=== PATIENT | male | born 1970 | race Caucasian/White ===

== ENCOUNTER 2018-11-24 23:50 | Emergency (ER) | payer MEDICAID ==
[2018-11-25] MEDS: Lidocaine/EPINEPHrine/Tetracaine Soln 5 ML Each TOP ONE ×2 (00:10→00:14)
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
== END 2018-11-25 00:55 | disposition home or self-care (01) ==
LOC: FB.ED 23:50
DX: S01.01XA Laceration without foreign body of scalp, initial encounter (principal); Y04.0XXA Assault by unarmed brawl or fight, initial encounter; Y92.838 Other recreation area as the place of occurrence of the external cause
CPT/HCPCS: 12002; 99282; 99283; A9270; 12001

== ENCOUNTER 2019-04-09 23:07 | Emergency (ER) | payer OTHER ==
[2019-04-09] MEDS ORDERED: Acetaminophen/HYDROcodone 325-5 MG Tab PO ONE (23:08)
[2019-04-09] MEDS ORDERED: Amoxicillin/Clavulanate K 500-125 MG Tab PO ONE (23:40)
[2019-04-09] MEDS ORDERED: Amoxicillin 500 MG Cap PO ONE (23:40)
--- NOTE | 2019-04-09 23:46 | EDM.PDOC ---
ED HPI GENERAL MEDICAL PROBLEM - General Stated Complaint: TOOTHACHE AND SWELLING Time Seen by Provider: 04/09/19 23:28 Source of Information: Reports: Patient History Limitations: Reports: No Limitations - History of Present Illness INITIAL COMMENTS - FREE TEXT/NARRATIVE: 48-year-old male with history of left upper dental pain off and on for the past 4 months. Today the pain was much worse and he noticed swelling over the left side of his face which has gotten worse through the day. The pain is a throbbing and aching pain with some sharp spikes. He rates the pain as an 8/10. He has had no fevers. He's had no nausea or vomiting. He swallowing normally. No difficulty breathing. The left upper tooth (molar) is sensitive to touch and to hot and cold. There are no other associated signs or symptoms. There are no other modifying factors. Onset: Other (Pain off and on for the past 4 months but increased pain and swelling began today) Duration: Getting Worse Location: Reports: Face (Left upper dental pain with facial swelling) Quality: Reports: Ache, Sharp, Throbbing Severity: Moderate Improves with: Reports: None Worsens with: Reports: Other (As above) Context: Reports: Other (Not applicable) Associated Symptoms: Reports: No Other Symptoms Treatments GLOBAL CTO: Reports: Other (see below) (Nothing) - Related Data Allergies Allergy/AdvReac Type Severity Reaction Status Date / Time No Known Allergies Allergy Verified 11/25/18 00:12 Home Meds: Home Meds Amoxicillin/Clavulanate K [Augmentin 875-125 MG] 1 tab PO BID 10 Days #20 tablet 04/09/19 [Rx] Past Medical History - Past Health History Medical/Surgical History: Denies Medical/Surgical History - Past Surgical History Other Surgical History Comment: No surgeries. 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.) ED ROS ENT - Review of Systems Review Of Systems: See Below Constitutional: Reports: No Symptoms HEENT: Reports: Dental Pain (Left upper dental pain), Other (Left facial swelling) Respiratory: Reports: No Symptoms Cardiovascular: Reports: No Symptoms Endocrine: Reports: No Symptoms GI/Abdominal: Reports: No Symptoms : Reports: No Symptoms Musculoskeletal: Reports: No Symptoms Skin: Reports: No Symptoms Neurological: Reports: No Symptoms Hematologic/Lymphatic: Reports: No Symptoms Immunologic: Reports: No Symptoms ED EXAM, ENT - Physical Exam Exam: See Below Exam Limited By: No Limitations General Appearance: Alert, WD/WN, Moderate Distress (In pain) Eye Exam: Bilateral Eye: EOMI, Normal Inspection, PERRL Ears: Normal External Exam, Hearing Grossly Normal Nose: Normal Inspection, Normal Mucousa Mouth/Throat: Dental Pain, Dental Tenderness, Other (Left upper gingival erythema; no pointing abscess; no sublingual edema; left facial swelling and tenderness with palpation with no fluctuant area) Head: Atraumatic Neck: Normal Inspection, Supple, Non-Tender, Full Range of Motion Respiratory/Chest: No Respiratory Distress, Lungs Clear, Normal Breath Sounds, No Accessory Muscle Use, Chest Non-Tender Cardiovascular: Normal Peripheral Pulses, Regular Rate, Rhythm, No JVD GI/Abdominal: Normal Bowel Sounds, Soft, Non-Tender, No Mass Back: Normal Inspection Extremities: Normal Inspection, Normal Range of Motion, Non-Tender, No Pedal Edema, Normal Capillary Refill Neurological: Alert, Oriented, CN II-XII Intact, Normal Cognition, No Motor/ Sensory Deficits Skin: Warm, Dry, Intact, Normal Color, No Rash Lymphatic: No Adenopathy Course - Orders/Labs/Meds Meds: Medications Discontinued Medications Generic Name Dose Route Start Last Admin Trade Name Freq PRN Reason Stop Dose Admin Amoxicillin 500 mg 04/09/19 23:40 Amoxil PO 04/09/19 23:41 ONETIME ONE Amoxicillin/Clavulanate Potassium 1 tab 04/09/19 23:40 Augmentin 500 Mg\125 Mg PO 04/09/19 23:41 ONETIME ONE - Re-Assessments/Exams Free Text/Narrative Re-Assessment/Exam: 04/09/19 23:50: Patient with left upper dental pain with left facial swelling and signs and symptoms of a dental abscess. The patient was given amoxicillin 500 mg and Augmentin 500 mg by mouth in the emergency department. He was also given a take-home pack of hydrocodone 5/325. He was told that he should not drink alcohol with this medication and I explained the risk of doing such. He will be placed on Augmentin 875 mg twice daily. He is to see a dentist as soon as he can arrange. His blood pressure was also elevated in the emergency department and I urged him to arrange for a primary provider. I actually referred him to one of the nurse practitioners. Departure - Departure Time of Disposition: 23:55 Disposition: Home, Self-Care 01 Condition: Good Clinical Impression: Pain, dental, Dental abscess, Facial cellulitis, Elevated blood pressure reading - Discharge Information *PRESCRIPTION DRUG MONITORING PROGRAM REVIEWED*: Yes (Patient was checked through the [facility] aware through all of the states adjacent to [place] and no one with patient's name and date of was found.) *COPY OF PRESCRIPTION DRUG MONITORING REPORT IN PATIENT JUAN DANIEL: No Prescriptions: Amoxicillin/Clavulanate K [Augmentin 875-125 MG] 1 tab PO BID 10 Days #20 tablet Instructions: Preventing Hypertension, Hypertension, How to Take Your Blood Pressure, Dental Abscess Referrals: PCP,None [Primary Care Provider] - Additional Instructions: You have a dental abscess associated with one of your left upper teeth and also with a facial cellulitis (or infection) associated with this dental infection. You should call a dentist to arrange to see them as soon as possible next week as this doctor will be the only person that we'll be able to ultimately take care of his problem. I have given you a take home pack of hydrocodone 5/325 that you may take for moderate to severe pain. You may also take ibuprofen 800 mg by mouth every 8 hours as needed for pain. Other medication as prescribed ( Augmentin 875 mg). You should take probiotics or eat yogurt daily while you are on these antibiotics. Back to the emergency department for trouble breathing, trouble swallowing, unrelenting vomiting, worsening signs of infection or any other concerning sign or symptom.
== END 2019-04-10 00:15 | disposition home or self-care (01) ==
LOC: FB.ED 23:07
DX: K04.7 Periapical abscess without sinus (principal); L03.211 Cellulitis of face; R03.0 Elevated blood-pressure reading, without diagnosis of hypertension; F17.210 Nicotine dependence, cigarettes, uncomplicated
CPT/HCPCS: 99282; A9270-GY

== ENCOUNTER 2019-11-30 19:00 | Emergency (ER) | payer BC, OTHER ==
[2019-11-30] MEDS ORDERED: LORazepam 0.5 MG Tab PO ONE ×2 (19:40)
[2019-11-30] MEDS ORDERED: LORazepam 0.5 MG Tab ONE (19:40)
--- NOTE | 2019-12-01 00:21 | ER ---
DATE SEEN: 11/30/2019 CHIEF COMPLAINT: Stress. HISTORY OF PRESENT ILLNESS: This is a 49-year-old male who presents feeling under a lot of stress. He lives alone, and over the last few days, he states that he has been unable to sleep well. He is stressed, depressed, and his mind cannot stop thinking. He denies any suicidal plan or ideation. He does agree that he has been drinking alcohol more than usual. REVIEW OF SYSTEMS: No weakness of one side. No fever or chills. SOCIAL HISTORY: He smokes, but denies any use of recreational drugs. PAST MEDICAL HISTORY: Hypertension. PHYSICAL EXAMINATION: VITAL SIGNS: He has normal vital signs, and he is afebrile. ENT: Normal. MENTAL STATUS: He is alert. He has euthymic affect. Denies any signs of sabas or psychosis. No delusions. Thought process is logical. FINAL IMPRESSION: 1. Acute situational stress. 2. Hypertension. 3. Depression. PLAN: I gave him 0.5 mg of lorazepam. I recommended he take another tablet tomorrow evening for sleep. I advised him to see [facility] on to discuss long-term treatment for anxiety and depression. Return to the ED with any worsening symptoms. /[id number]/JASSI
== END 2019-11-30 19:50 | disposition home or self-care (01) ==
LOC: FB.ED 19:00
DX: F32.9 Major depressive disorder, single episode, unspecified (principal); F43.9 Reaction to severe stress, unspecified; I10 Essential (primary) hypertension
CPT/HCPCS: 99283; A9270